=== PATIENT | male | born 1985 | race Caucasian/White ===

== ENCOUNTER 2019-07-07 10:00 | Emergency (ER) ==
[2019-07-07 10:31] VITALS: BP 125/70
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
[2019-07-07] MEDS: KETOROLAC TROMETHAMINE 60 MG/2 ML VIAL IM ONE (10:55)
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
== END 2019-07-07 11:34 | disposition home or self-care (01) ==
LOC: ED 10:00
DX: M25.552 Pain in left hip (principal); M54.5 Low back pain; V89.2XXA Person injured in unspecified motor-vehicle accident, traffic, initial encounter; Y99.8 Other external cause status
CPT/HCPCS: 72100; 96372; 99282; 99284; J1885

== ENCOUNTER 2019-08-08 09:29 | Emergency (ER) | payer OTHER ==
--- NOTE | 2019-08-08 09:38 | ED Physician Documentation ---
Nausea/Vomiting/Diarrhea - HISTORIAN Historian: patient - HPI Stated Complaint: nausea and vomiting since yesterday Chief Complaint: Nausea,Vomiting,Diarrhea Onset: hours (24) Duration: other (constant through night no vomiting x 3 hours ) Last known Well Code/Unknown Code: Unknown Context: bad food (possible per his report ). denies: out of country travel Severity: moderate Further Comments: yes (He states he started vomiting "around this time yesterday" and he had vomiting and diarrhea through day yesterday. Nausea continues no vomiting or diarrhea for 3 hours "but all I have had is fluid when I eat food I vomit" No fever. NO sick contacts. NO pain) - Associated Symptoms Vomiting: frequent Diarrhea: copious Abdominal Pain: cramping, epigastric - ROS CONST: none EYES/ENT: none - PAST HX Past History: none Allergies/Adverse Reactions: Allergies Allergy/AdvReac Type Severity Reaction Status Date / Time Penicillins Allergy Verified 08/08/19 09:47 Home Medications: Ambulatory Orders Medication Instructions Recorded Dextroamphetamine/Amphetamine 20 mg PO BID 07/07/19 [Adderall 20 mg Tablet] - SOCIAL HX Smoking History: cigarettes Alcohol Use: none Drug Use: none - FAMILY HX Family History: none - VITAL SIGNS Vital Signs: Vital Signs Temp Pulse Resp BP Pulse Ox 99.2 F 76 16 112/68 97 08/08/19 10:21 08/08/19 10:21 08/08/19 10:21 08/08/19 10:21 08/08/19 10:21 - REVIEWED ASSESSMENTS Nursing Assessment Reviewed: Yes Vitals Reviewed: Yes ED Results Lab/Radiology - Orders Orders: ED Orders Category Date Time Status Ondansetron HCl Rapdis [Zofran Odt] Med 08/08/19 09:53 Discontinued 4 mg PO NOW ONE Nausea Physical Exam - EXAM General Appearance: no acute distress, alert EENT: eye inspection normal, pharynx normal, no signs of dehydration Neck: normal inspection Respiratory: no resp distress, chest non-tender, breath sounds normal CVS: reg rate & rhythm, heart sounds normal Abdomen: non-tender (bowel sounds equal x 4 ). No: tenderness, guarding Skin: warm/dry, normal color Extremities: non-tender, no edema Neuro/Psych: oriented X3 Discharge Clincal Impression: Nausea & vomiting Qualifiers: Vomiting type: unspecified Vomiting Intractability: unspecified Qualified Code(s): R11.2 - Nausea with vomiting, unspecified Referrals: Primary Doctor,No [Primary Care Provider] - 2 Days Comments: 1. Zofran 4 mg take 1 by mouth every 8 hours as needed for nausea 2. Zantac 150 mg take 1 by mouth twice daily 3. Liquid diet advance to bland as tolerated 4. Return to PCP if no improvement in 2- 4days 5. Return to ER for any increased concerns Condition: Stable Disposition: 01 HOME, SELF-CARE Decision to Admit: NO Date of Decison to Admit: 08/08/19 Decision Time: 10:20
[2019-08-08] MEDS ORDERED: ONDANSETRON HCL 4 MG TAB.RAPDIS PO ONE (09:53)
[2019-08-08 10:51] VITALS: BP 112/68
== END 2019-08-08 10:21 | disposition home or self-care (01) ==
LOC: ED 09:29
DX: R11.2 Nausea with vomiting, unspecified (principal)
CPT/HCPCS: 99283; 99284; A9270